=== PATIENT | male | born 1960 | race Caucasian/White ===

== ENCOUNTER 2020-04-11 14:43 | Outpatient (CLI) | payer BC ==
--- NOTE | 2020-04-11 20:24 | RAD ---
SCOLIOSIS STUDY 04/11/20 There has been a posterior fusion of the thoracolumbar spine which runs approximately from the T7 thr ough sacral levels. Rods are present on each side with pedicle screws at each level. Synthetic discs are evident between L3 and L4 and L4 and L5. At L5-S1, there appears to be a prominent spondylolisthe sis. A disc spacer is present at this level but the anterior part of it seems to be at the very teresa n of the disc space. One would need former films to compare with to better assess this. Mild wedging of L1 is noted. There appears to have been vertebroplasties at approximately the T6 and T7 levels. Th ere is a mild thoracolumbar scoliosis convexed right in the neighborhood of 4 degrees of so. IMPRESSION: 1. Postoperative changes as noted. 2. Mild wedging of L1. 3. Rather prominent spondylolisthesis of L5 on S1, though this would be better assessed with a s pot view at this level. POS: HOME
== END 2020-04-11 14:44 | disposition home or self-care (01) ==
LOC: BURRAD 14:43
PROVIDERS: ATTEND Orthopaedic Surgery
DX: Z47.89 Encounter for other orthopedic aftercare (principal); M48.56XA Collapsed vertebra, not elsewhere classified, lumbar region, initial encounter for fracture; Z98.1 Arthrodesis status
CPT/HCPCS: 72081

== ENCOUNTER 2020-05-28 10:56 | Outpatient (CLI) | payer BC | END 2020-05-28 10:57 | disposition home or self-care (01) | LOC: BURRAD 10:56 | PROVIDERS: ATTEND Orthopaedic Surgery | DX: Z47.89 Encounter for other orthopedic aftercare (principal); Z98.1 Arthrodesis status | CPT/HCPCS: 72081 ==

== ENCOUNTER 2020-07-04 09:06 | Outpatient (CLI) | payer BC | END 2020-07-04 09:07 | disposition home or self-care (01) | LOC: BURCT 09:06 | PROVIDERS: ATTEND Physician Assistant | DX: M43.16 Spondylolisthesis, lumbar region (principal); Z98.1 Arthrodesis status | CPT/HCPCS: 72131 ==